=== PATIENT | female | born 2000 | race Caucasian/White ===

== ENCOUNTER 2021-08-08 14:29 | Emergency (ER) | payer MEDICAID ==
--- NOTE | 2021-08-08 14:31 | ERPHSYRPT ---
- History of Present Illness Time Seen by Provider: 08/08/21 14:31 Source: patient Exam Limitations: no limitations Physician History: This is a 20-year-old white female who states that her last menstrual period was July 07, 2021 and she has been having bleeding intermittently since that date. Approximately 2 weeks ago patient took a test and was positive. She then followed up with [facility] emergency department a week after and confirmed that there was a positive test. She also underwent a transvaginal ultrasound at that time and it was negative per her report. We will obtain those records. Patient states she has had blood work ordered by an svp chief marketing officer which showed her quantitative hCG to be low. A repeat 1 was even lower. She has yet to see this svp chief marketing officer and could not get a hold of them this weekend. She was told that she should have repeat studies to evaluate her quantitative hCG status and CBC. Patient states that she has a lower suprapubic to left side mild cramping. Timing/Duration: week(s) (4), intermittent Severity: mild Associated Symptoms: abdominal pain (Mild cramping suprapubic to left side), other (She denies dizziness when standing and ambulating.), No weakness Allergies/Adverse Reactions: No Known Drug Allergies Allergy (Verified 08/08/21 14:37) Home Medications: No Home Meds [No Home Meds] 1 [facility] 11/26/13 [History] Hx Tetanus, Diphtheria Vaccination/Date Given: Yes Hx Influenza Vaccination/Date Given: No Hx Pneumococcal Vaccination/Date Given: No Travel Risk - International Travel Have you traveled outside of the country in past 3 weeks: No - Coronavirus Screening Are you exhibiting any of the following symptoms?: No Close contact with a COVID-19 positive Pt in past 14-21 Days: No - Review of Systems Constitutional: No Symptoms, No Weakness Eyes: No Symptoms Ears, Nose, & Throat: No Symptoms Respiratory: No Symptoms Cardiac: No Symptoms Abdominal/Gastrointestinal: Abdominal Pain (Mild cramping suprapubic midline to left side), No Nausea, No Vomiting, No Diarrhea Genitourinary Symptoms: Vaginal Bleeding, No Dysuria, No Hematuria, No Flank P ain Musculoskeletal: No Symptoms Skin: No Symptoms Neurological: No Symptoms, No Dizziness Psychological: No Symptoms Endocrine: No Symptoms Hematologic/Lymphatic: No Symptoms Immunological/Allergic: No Symptoms All Other Systems: Reviewed and Negative - Past Medical History Pertinent Past Medical History: No Neurological History: No Pertinent History ENT History: No Pertinent History Cardiac History: No Pertinent History Respiratory History: No Pertinent History Endocrine Medical History: No Pertinent History Musculoskeletal History: No Pertinent History GI Medical History: No Pertinent History History: No Pertinent History Psycho-Social History: No Pertinent History Female Reproductive Disorders: No Pertinent History - Past Surgical History Past Surgical History: Yes Neuro Surgical History: No Pertinent History Cardiac: No Pertinent History Respiratory: No Pertinent History Gastrointestinal: No Pertinent History Genitourinary: No Pertinent History Musculoskeletal: No Pertinent History Female Surgical History: No Pertinent History Other Surgical History: ortho - Social History Smoking Status: Never smoker Exposure to second hand smoke: Yes Drug Use: none Patient Lives Alone: No - Nursing Vital Signs Nursing Vital Signs: Initial Vital Signs Temperature 98.0 F 08/08/21 14:39 Pulse Rate 67 08/08/21 14:39 Respiratory Rate 18 08/08/21 14:39 Blood Pressure 137/92 08/08/21 14:39 O2 Sat by Pulse Oximetry 100 08/08/21 14:39 Pain Scale Pain Intensity 0 - Physical Exam General Appearance: no apparent distress, alert, anxiety, thin Eye Exam: PERRL/EOMI, eyes nml inspection Ears, Nose, Throat Exam: normal ENT inspection, moist mucous membranes Neck Exam: normal inspection, non-tender, supple, full range of motion Respiratory Exam: normal breath sounds, lungs clear, airway intact, No chest tenderness, No respiratory distress Cardiovascular Exam: regular rate/rhythm, normal heart sounds, normal peripheral pulses Gastrointestinal/Abdomen Exam: soft, normal bowel sounds, tenderness (Mild left side suprapubic to deep palpation), No distention, No guarding, No rebound Pelvic Exam: normal external exam, No adnexal tenderness, No adnexal mass Rectal Exam: not done Back Exam: normal inspection, normal range of motion, No CVA tenderness, No vertebral tenderness Extremity Exam: normal inspection, normal range of motion, pelvis stable Neurologic Exam: alert, oriented x 3, cooperative, manager unix II-XII nml as tested, normal mood/affect, nml cerebellar function, nml station & gait, sensation nml Skin Exam: normal color, warm, dry Lymphatic Exam: No adenopathy SpO2 Interpretation: normal O2 Delivery: Room Air - Course Nursing assessment & vital signs reviewed: Yes Ordered Tests: Active Orders 24 hr Category Date Time Status Orthostatic Vital Signs STAT Care 08/08/21 14:54 Active CBC W DIFF Stat Lab 08/08/21 15:00 Completed HCG, Quantitative (Inhouse) Stat Lab 08/08/21 15:00 Completed UA W/RFX UR CULTURE Stat Lab 08/08/21 15:43 Ordered Lab/Rad Data: Laboratory Result Diagrams 08/08/21 15:00 Laboratory Results 08/08/21 08/08/21 Range/Units 15:00 15:00 WBC 5.2 (4.0-10.5) K/mm3 RBC 3.80 L (4.1-5.4) M/mm3 Hgb 11.7 L (12.0-16.0) gm/dl Hct 36.8 (35-47) % MCV 96.8 (78-100) fl MCH 30.8 (26-32) pg MCHC 31.8 L (32-36) g/dl RDW 12.5 (11.5-14.0) % Plt Count 293 (150-450) K/mm3 MPV 9.7 (7.5-11.0) fl Gran % 51.3 (36.0-66.0) % Eos # (Auto) 0.12 (0-0.5) Absolute Lymphs (auto) 1.65 (1.0-4.6) Absolute Monos (auto) 0.74 (0.0-1.3) Lymphocytes % 31.6 (24.0-44.0) % Monocytes % 14.2 H (0.0-12.0) % Eosinophils % 2.3 (0.00-5.0) % Basophils % 0.6 (0.0-0.4) % Absolute Granulocytes 2.68 (1.4-6.9) Basophils # 0.03 (0-0.4) Beta HCG, Quant 4.96 mIU/ml - Progress Progress: improved, re-examined Progress Note: 08/08/21 15:53 Medical decision making: This patient has had intermittent vaginal bleeding for approximately 4 weeks. She has been seen in the emergency departments on at least 2 different occasions and has called her svp chief marketing officer once but has never seen that physician. On 07/26/2021 patient underwent the transvaginal ultrasound that shows of unknown location. There was a possible early intrauterine gestational sac though they state it is not definitive. The beta (quantitative) hCG was 489 on that date and now it is 4. Patient does not have a significant amount of pain. She is not orthostatic. Her hemoglobin today is 11.7. On 07/26/2021 patient's hemoglobin was 11.5. Because she is hemodynamically stable and on the last ultrasound there was a possible early intrauterine gestational sac present I think the patient is stable enough to be discharged to home with instruction to follow-up tomorrow morning and obtain a repeat transvaginal ultrasound. She was instructed to have a follow-up in ultrasound in 5 to 7 days from that 07/26/2021 date. However, she did not obtain another ultrasound. Counseled pt/family regarding: lab results, diagnosis, need for follow-up - Departure Departure Disposition: Home Clinical Impression: Vaginal bleeding Condition: Stable Critical Care Time: No Additional Instructions: Return to the radiology department tomorrow, 08/09/2021, at the instructed time. Follow the pretransvaginal ultrasound instructions. Return to the emergency department if vaginal bleeding or abdominal pain worsens.
[2021-08-08 14:46] VITALS: O2SAT 100
[2021-08-08 15:16] LABS: Absolute Neutrophil Ct (ANC) 2.68 (1.4-6.9); BASOPHIL % 0.6 % (0.0-0.4); Basophil (Absolute #) 0.03 (0-0.4); Eosinophil % 2.3 % (0.00-5.0); Eosinophil (Absolute #) 0.12 (0-0.5); Hematocrit 36.8 % (35-47); Hemoglobin 11.7 gm/dl (12.0-16.0); Lymphocyte (Absolute #) 1.65 (1.0-4.6); Lymphocytes % 31.6 % (24.0-44.0); Mean Cell Volume 96.8 fl (78-100); Mean Corpuscular Hemoglobin 30.8 pg (26-32); Mean Corpuscular Hgb Concent. 31.8 g/dl (32-36); Mean Platelet Volume 9.7 fl (7.5-11.0); Monocyte (Absolute #) 0.74 (0.0-1.3); Monocytes % 14.2 % (0.0-12.0); Neutrophil % 51.3 % (36.0-66.0); Platelet Count 293 K/mm3 (150-450); Red Cell Distribution Width 12.5 % (11.5-14.0); White Blood Count 5.2 K/mm3 (4.0-10.5)
[2021-08-08 15:41] LABS: Appearance CLEAR (CLEAR); Bilirubin NEGATIVE (NEGATIVE); Blood NEGATIVE Ery/ul (0-5); Glucose NEGATIVE (NEGATIVE); Ketones NEGATIVE (NEGATIVE); Leukocyte Esterase NEGATIVE (NEGATIVE); Mucus SLIGHT /HPF (NEGATIVE); Nitrite NEGATIVE (NEGATIVE); Protein,Urine Dip 30 (Negative); Specific Gravity 1.018 (1.005-1.025); Urobilinogen NEGATIVE mg/dL (0-1)
[2021-08-08 16:29] VITALS: BP 115/67; PULSE 78
== END 2021-08-08 16:29 | disposition home or self-care (01) ==
LOC: ED 14:29
DX: N93.9 Abnormal uterine and vaginal bleeding, unspecified (principal); R10.9 Unspecified abdominal pain
CPT/HCPCS: 36415; 81001; 84702; 85025; 99283

== ENCOUNTER 2022-06-20 13:21 | Emergency (ER) | payer MEDICAID ==
[2022-06-20] MEDS ORDERED: Sodium Chloride 0.9% 1000 ML 1,000 ML IV STA (14:01)
[2022-06-20] MEDS ORDERED: Sodium Chloride 0.9% 1000 ML 1,000 ML ONE (14:15)
[2022-06-20 14:17] LABS: Absolute Neutrophil Ct (ANC) 2.54 x10^3/uL (1.4-6.9); Basophil (Absolute #) 0.06 x10^3/uL (0-0.4); Eosinophil % 1.7 % (0.00-5.0); Eosinophil (Absolute #) 0.08 x10^3/uL (0-0.5); Hematocrit 34.2 % (35-47); Hemoglobin 11.2 g/dL (12.0-16.0); Lymphocyte (Absolute #) 1.36 x10^3/uL (1.0-4.6); Lymphocytes % 29.6 % (24.0-44.0); Mean Cell Volume 96.1 fL (78-100); Mean Corpuscular Hemoglobin 31.5 pg (26-32); Mean Corpuscular Hgb Concent. 32.7 g/dL (32-36); Mean Platelet Volume 9.2 fL (7.5-11.0); Monocyte (Absolute #) 0.54 x10^3/uL (0.0-1.3); Monocytes % 11.8 % (0.0-12.0); Neutrophil % 55.4 % (36.0-66.0); Platelet Count 207 x10^3/uL (150-450); Red Blood Count 3.56 x10^6/uL (4.1-5.4); Red Cell Distribution Width 12.1 % (11.5-14.0); White Blood Count 4.6 x10^3/uL (4.0-10.5)
--- NOTE | 2022-06-20 15:21 | ERPHSYRPT ---
- History of Present Illness Time Seen by Provider: 06/20/22 13:41 Source: patient Exam Limitations: no limitations Patient Subjective Stated Complaint: pt here for vaginal bleeding that started today at work with sine blood clots and lower abd pain Triage Nursing Assessment: pt alert, crying off and on, resp easy, skin w/d/p, abd soft, no edema, Physician History: 21 years old 2 para 0 at almost 6 weeks gestation per LMP presented in the ER after she noticed vaginal bleeding/clot earlier today and every time she wiped she noticed some dark blood afterwards. She is also complaining of pelvic pressure and cramping mild to moderate. No difficulty urination. Does have history of miscarriage around 6 weeks last year. Timing/Duration: hour(s) (2), gradual onset, worse Activites at Onset: physical activity Quality: cramping Onset Location: pelvic pain Pain Radiation: none Severity of Pain-Max: moderate Severity of Pain-Current: mild Prior abdominal problems: none Sexual intercourse history: non-contributory Modifying Factors: Improves With: nothing Associated Symptoms: denies symptoms Allergies/Adverse Reactions: No Known Drug Allergies Allergy (Verified 06/20/22 13:30) Home Medications: No Home Meds [No Home Meds] 1 [facility] 11/26/13 [History] Hx Tetanus, Diphtheria Vaccination/Date Given: No Hx Influenza Vaccination/Date Given: No Hx Pneumococcal Vaccination/Date Given: No Travel Risk - International Travel Have you traveled outside of the country in past 3 weeks: No - Coronavirus Screening Are you exhibiting any of the following symptoms?: No Close contact with a COVID-19 positive Pt in past 14-21 Days: No - Vaccine Status Have you recieved a Covid-19 vaccination: Yes Targeting Acquisition Officer: Moderna - Vaccination Dates Date of 2cond Vaccination (if applicable): 2020 - Review of Systems Constitutional: No Symptoms Eyes: No Symptoms Ears, Nose, & Throat: No Symptoms Respiratory: No Symptoms Cardiac: No Symptoms Abdominal/Gastrointestinal: Abdominal Pain Genitourinary Symptoms: No Symptoms Musculoskeletal: No Symptoms Skin: No Symptoms Neurological: No Symptoms Psychological: No Symptoms Endocrine: No Symptoms Hematologic/Lymphatic: No Symptoms Immunological/Allergic: No Symptoms - Past Medical History Pertinent Past Medical History: No Neurological History: No Pertinent History ENT History: No Pertinent History Cardiac History: No Pertinent History Respiratory History: No Pertinent History Endocrine Medical History: No Pertinent History Musculoskeletal History: No Pertinent History GI Medical History: No Pertinent History History: No Pertinent History Psycho-Social History: No Pertinent History Female Reproductive Disorders: No Pertinent History - Past Surgical History Past Surgical History: Yes Neuro Surgical History: No Pertinent History Cardiac: No Pertinent History Respiratory: No Pertinent History Gastrointestinal: No Pertinent History Genitourinary: No Pertinent History Musculoskeletal: No Pertinent History Female Surgical History: No Pertinent History Other Surgical History: ortho - Social History Smoking Status: Never smoker Exposure to second hand smoke: No Drug Use: none Patient Lives Alone: No - Female History Hx Last Menstrual Period: may 06 Hx Now: Yes - Nursing Vital Signs Nursing Vital Signs: Initial Vital Signs Temperature 97.0 F 06/20/22 13:40 Pulse Rate 88 06/20/22 13:40 Respiratory Rate 18 06/20/22 13:40 Blood Pressure 122/81 06/20/22 13:40 O2 Sat by Pulse Oximetry 98 06/20/22 13:40 Pain Scale Pain Intensity 2 - Physical Exam General Appearance: no apparent distress, alert Eye Exam: PERRL/EOMI Ears, Nose, Throat Exam: normal ENT inspection Neck Exam: normal inspection, full range of motion Respiratory Exam: normal breath sounds, lungs clear Cardiovascular Exam: regular rate/rhythm, normal heart sounds Gastrointestinal/Abdomen Exam: soft, normal bowel sounds, No tenderness Back Exam: normal inspection, normal range of motion Extremity Exam: normal inspection, normal range of motion Neurologic Exam: alert, oriented x 3, cooperative Skin Exam: normal color SpO2 Interpretation: normal SpO2: 98 O2 Delivery: Room Air Ordered Tests: Active Orders 24 hr Category Date Time Status IV Insertion STAT Care 06/20/22 14:01 Active OB <14 WKS 1ST GESTATION [US] Stat Exams 06/20/22 15:44 Taken CBC W DIFF Stat Lab 06/20/22 14:13 Completed CMP Stat Lab 06/20/22 14:13 Completed CULTURE,URINE Stat Lab 06/20/22 14:07 Received HCG, Quantitative (Inhouse) Stat Lab 06/20/22 14:13 Completed UA W/RFX CULTURE Stat Lab 06/20/22 14:07 Completed Medication Summary Discontinued Medications Generic Name Dose Route Start Last Admin Trade Name Freq PRN Reason Stop Dose Admin Sodium Chloride 1,000 mls @ 999 mls/hr 06/20/22 14:01 06/20/22 15:17 Sodium Chloride 0.9% 1000 Ml IV 06/20/22 15:01 Infused .Q1H1M STA Infusion Sodium Chloride Confirm 06/20/22 14:15 Sodium Chloride 0.9% 1000 Ml Administered 06/20/22 14:16 Dose 1,000 mls @ ud .ROUTE .STK-MED ONE Ceftriaxone Sodium/Dextrose 1 g in 50 mls @ 100 mls/hr 06/20/22 16:16 06/20/22 16:49 Rocephin 1 Gm-D5w 50 Ml Bag IV 06/20/22 16:45 Infused STAT STA Infusion Ceftriaxone Sodium/Dextrose Confirm 06/20/22 16:17 Rocephin 1 Gm-D5w 50 Ml Bag Administered 06/20/22 16:18 Dose 1 g in 50 mls @ ud IV .STK-MED ONE Lab/Rad Data: Laboratory Result Diagrams 06/20/22 14:13 06/20/22 14:13 Laboratory Results 06/20/22 06/20/22 06/20/22 Range/Units 15:51 14:13 14:13 WBC 4.6 (4.0-10.5) x10^3/uL RBC 3.56 L (4.1-5.4) x10^6/uL Hgb 11.2 L (12.0-16.0) g/dL Hct 34.2 L (35-47) % MCV 96.1 (78-100) fL MCH 31.5 (26-32) pg MCHC 32.7 (32-36) g/dL RDW 12.1 (11.5-14.0) % Plt Count 207 (150-450) x10^3/uL MPV 9.2 (7.5-11.0) fL Gran % 55.4 (36.0-66.0) % Immature Gran % (Auto) 0.2 (0.00-0.4) % Nucleat RBC Rel Count 0.0 (0.00-0.1) % Eos # (Auto) 0.08 (0-0.5) x10^3/uL Immature Gran # (Auto) 0.01 (0.00-0.03) x10^3u/L Absolute Lymphs (auto) 1.36 (1.0-4.6) x10^3/uL Absolute Monos (auto) 0.54 (0.0-1.3) x10^3/uL Absolute Nucleated RBC 0.00 (0.00-0.01) x10^3u/L Lymphocytes % 29.6 (24.0-44.0) % Monocytes % 11.8 (0.0-12.0) % Eosinophils % 1.7 (0.00-5.0) % Basophils % 1.3 (0.0-0.4) % Absolute Granulocytes 2.54 (1.4-6.9) x10^3/uL Basophils # 0.06 (0-0.4) x10^3/uL Sodium 137 (137-145) mmol/L Potassium 3.9 (3.5-5.1) mmol/L Chloride 105 (98-107) mmol/L Carbon Dioxide 25 (22-30) mmol/L Anion Gap 11.6 (5-15) MEQ/L BUN 11 (7-17) mg/dL Creatinine 0.61 (0.52-1.04) mg/dL Estimated GFR > 60.0 ML/MIN Glucose 90 (74-106) mg/dL Calcium 9.1 (8.4-10.2) mg/dL Total Bilirubin 0.60 (0.2-1.3) mg/dL AST 27 (14-36) U/L ALT 10 (0-35) U/L Alkaline Phosphatase 47 (38-126) U/L Serum Total Protein 7.0 (6.3-8.2) g/dL Albumin 4.4 (3.5-5.0) g/dL Beta HCG, Quant 664.80 mIU/ml Urinalys Dipstick Clnc Urine Color (YELLOW) Urine Appearance (CLEAR) Urine pH (5-6) Ur Specific Kaplan (1.005-1.025) POC Urine Protein Conf (Negative) Urine Ketones (NEGATIVE) Urine Nitrite (NEGATIVE) Urine Bilirubin (NEGATIVE) Urine Urobilinogen (0-1) mg/dL Urine Leukocytes (NEGATIVE) Urine WBC (Auto) (0-5) /HPF Urine RBC (Auto) (0-2) /HPF U Hyaline Cast (Auto) (0-2) /LPF U Epithel Cells (Auto) (FEW) /HPF Urine Bacteria (Auto) (NEGATIVE) /HPF Urine RBC (0-5) Avni/ul Urine Mucus (Auto) (NEGATIVE) /HPF Ur Culture Indicated? Urine Glucose (NEGATIVE) mg/dL ABO Group O Rh Factor POSITIVE Antibody Screen NEGATIVE (NEGATIVE) 06/20/22 Range/Units 14:07 WBC (4.0-10.5) x10^3/uL RBC (4.1-5.4) x10^6/uL Hgb (12.0-16.0) g/dL Hct (35-47) % MCV (78-100) fL MCH (26-32) pg MCHC (32-36) g/dL RDW (11.5-14.0) % Plt Count (150-450) x10^3/uL MPV (7.5-11.0) fL Gran % (36.0-66.0) % Immature Gran % (Auto) (0.00-0.4) % Nucleat RBC Rel Count (0.00-0.1) % Eos # (Auto) (0-0.5) x10^3/uL Immature Gran # (Auto) (0.00-0.03) x10^3u/L Absolute Lymphs (auto) (1.0-4.6) x10^3/uL Absolute Monos (auto) (0.0-1.3) x10^3/uL Absolute Nucleated RBC (0.00-0.01) x10^3u/L Lymphocytes % (24.0-44.0) % Monocytes % (0.0-12.0) % Eosinophils % (0.00-5.0) % Basophils % (0.0-0.4) % Absolute Granulocytes (1.4-6.9) x10^3/uL Basophils # (0-0.4) x10^3/uL Sodium (137-145) mmol/L Potassium (3.5-5.1) mmol/L Chloride (98-107) mmol/L Carbon Dioxide (22-30) mmol/L Anion Gap (5-15) MEQ/L BUN (7-17) mg/dL Creatinine (0.52-1.04) mg/dL Estimated GFR ML/MIN Glucose (74-106) mg/dL Calcium (8.4-10.2) mg/dL Total Bilirubin (0.2-1.3) mg/dL AST (14-36) U/L ALT (0-35) U/L Alkaline Phosphatase (38-126) U/L Serum Total Protein (6.3-8.2) g/dL Albumin (3.5-5.0) g/dL Beta HCG, Quant mIU/ml Urinalys Dipstick Clnc MAIN LAB Urine Color YELLOW (YELLOW) Urine Appearance CLEAR (CLEAR) Urine pH 5.5 (5-6) Ur Specific Kaplan >=1.030 (1.005-1.025) POC Urine Protein Conf 30 (Negative) Urine Ketones NEGATIVE (NEGATIVE) Urine Nitrite NEGATIVE (NEGATIVE) Urine Bilirubin NEGATIVE (NEGATIVE) Urine Urobilinogen 0.2 (0-1) mg/dL Urine Leukocytes NEGATIVE (NEGATIVE) Urine WBC (Auto) 16-25 (0-5) /HPF Urine RBC (Auto) 16-25 (0-2) /HPF U Hyaline Cast (Auto) 3-5 (0-2) /LPF U Epithel Cells (Auto) RARE (FEW) /HPF Urine Bacteria (Auto) FEW (NEGATIVE) /HPF Urine RBC LARGE (0-5) Avni/ul Urine Mucus (Auto) SLIGHT (NEGATIVE) /HPF Ur Culture Indicated? YES Urine Glucose NEGATIVE (NEGATIVE) mg/dL ABO Group Rh Factor Antibody Screen (NEGATIVE) - Progress Progress: improved Air Movement: good Progress Note: 06/20/22 17:50 21 years old did for early related bleeding. Patient has beta-hCG in 600s. Ultrasound obtained which is unable to see pole/heart tones which could be real early in versus threatened . Recommended serial monitoring of beta-hCG and outpatient EMBEDDED SYSTEMS SOFTWARE DEVELOPER follow-up. Does have UTI, given dose of Rocephin in here and will continue with Keflex to go home. Discussed signs symptoms of worsening needing return to ER which she seems understanding. Blood Culture(s) Obtained: No Antibiotics given: No Counseled pt/family regarding: lab results, diagnosis, need for follow-up, rad results - Departure Departure Disposition: Home Clinical Impression: Vaginal bleeding affecting early , UTI in Condition: Stable Critical Care Time: No Referrals: RANULFO RODRIGUEZ [Primary Care Provider] - Follow Up with PCP/3 days ELIOT BECKHAM DO [ACTIVE STAFF] - Follow up/PCP as directed (Call tomorrow for appointment for reevaluation) Instructions: Threatened Miscarriage (DC), Bleeding in Early (DC) Additional Instructions: Keep yourself well-hydrated. Take Tylenol as needed for cramping. Follow-up with your primary care/EMBEDDED SYSTEMS SOFTWARE DEVELOPER for reevaluation and recheck of beta-hCG to see if it is increasing or not. Return to ER for worsening cramping, bleeding etc. Prescriptions: Cephalexin Mh 500 mg [Keflex 500 mg] 500 mg PO TID #21 cap
[2022-06-20 15:24] LABS: ALBUMIN 4.4 g/dL (3.5-5.0); ALKALINE PHOSPHATASE 47 U/L (38-126); ANION GAP 11.6 MEQ/L (5-15); BLOOD UREA NITROGEN 11 mg/dL (7-17); CHLORIDE 105 mmol/L (98-107); Calcium 9.1 mg/dL (8.4-10.2); Carbon Dioxide 25 mmol/L (22-30); Creatinine 1 0.61 mg/dL (0.52-1.04); EST GLOMERULAR FILTRATION RATE > 60.0 ML/MIN; Glucose 90 mg/dL (74-106); Potassium 3.9 mmol/L (3.5-5.1); SGOT/AST 27 U/L (14-36); SGPT/ALT 10 U/L (0-35); SODIUM 137 mmol/L (137-145)
[2022-06-20 15:31] LABS: Bacteria FEW /HPF (NEGATIVE); Epithelial Cells RARE /HPF (FEW); Mucus SLIGHT /HPF (NEGATIVE)
[2022-06-20 15:36] LABS: Appearance CLEAR (CLEAR); Bilirubin NEGATIVE (NEGATIVE); Glucose NEGATIVE (NEGATIVE); Ketones NEGATIVE (NEGATIVE)
[2022-06-20 15:37] LABS: Dipstick done @ ? MAIN LAB; Nitrite NEGATIVE (NEGATIVE); Ph 5.5 (5-6); Protein,Urine Dip 30 (Negative); RBC LARGE Ery/ul (0-5); Specific Gravity >=1.030 (1.005-1.025); Urine Cultured Indicated? YES; Urobilinogen 0.2 mg/dL (0-1)
[2022-06-20] MEDS ORDERED: ROCEPHIN 1 Gm-D5w 50 ml Bag** 1 G/50 ML IVPB IV STA (16:16)
[2022-06-20] MEDS ORDERED: ROCEPHIN 1 Gm-D5w 50 ml Bag** 1 G/50 ML IVPB IV ONE (16:17)
[2022-06-20 16:55] LABS: ABO TYPING O; Antibody Screen NEGATIVE (NEGATIVE); RH TYPING POSITIVE
[2022-06-20 18:11] VITALS: BP 125/93; PULSE 88; O2SAT 97
--- NOTE | 2022-06-20 18:26 | XRAY ---
Indication: Bleeding and cramping. Two-dimensional transvaginal early OB ultrasound is negative for intrauterine or ectopic . Endometrial stripe is thickened measuring 1.7 cm. No endometrial cavity mass or fluid collection. Left and right ovaries are sonographically unremarkable. No suspicious adnexal mass or free fluid. Comment: Negative for intrauterine/ectopic . Thickened endometrial stripe. Correlate with serial beta hCG and follow-up sonogram regarding viability. Comment: Preliminary report was given.
== END 2022-06-20 18:10 | disposition home or self-care (01) ==
LOC: ED 13:21
DX: O20.9 Hemorrhage in early pregnancy, unspecified (principal); O23.41 Unspecified infection of urinary tract in pregnancy, first trimester; N39.0 Urinary tract infection, site not specified; Z3A.01 Less than 8 weeks gestation of pregnancy
CPT/HCPCS: 36000; 36415; 76801; 80053; 81015; 84702; 85025; 86850; 86900; 86901; 87086; 96365; 99284; J0696

== ENCOUNTER 2022-06-28 06:56 | Day surgery (SDC) | payer MEDICAID ==
[2022-06-28] MEDS ORDERED: Versed 2 MG/2 ML Injection IV PRN (07:43)
[2022-06-28] MEDS ORDERED: Lactated Ringers 1,000 ML IV ONE (07:45)
[2022-06-28] MEDS ORDERED: Versed 2 MG/2 ML Injection ONE ×2 (07:46→08:52)
[2022-06-28] MEDS ORDERED: CEFAZOLIN 2 GM-D5W BAG** 2 GM/50 ML ML IV ONE (07:46)
[2022-06-28] MEDS ORDERED: CEFAZOLIN 2 GM-D5W BAG** 2 GM/50 ML ML IV SCH (08:00)
[2022-06-28] MEDS ORDERED: Lactated Ringers 1,000 ML IV SCH (08:00)
[2022-06-28 08:11] LABS: Hematocrit 34.4 % (35-47); Mean Cell Volume 97.2 fL (78-100); Mean Corpuscular Hemoglobin 31.1 pg (26-32); Mean Platelet Volume 9.5 fL (7.5-11.0); Platelet Count 212 x10^3/uL (150-450); Red Blood Count 3.54 x10^6/uL (4.1-5.4); Red Cell Distribution Width 12.3 % (11.5-14.0)
[2022-06-28 08:43] LABS: ABO TYPING O; Antibody Screen NEGATIVE (NEGATIVE); RH TYPING POSITIVE
[2022-06-28] MEDS ORDERED: SUBLIMAZE 100 MCG/2 ML ONE (08:52)
[2022-06-28 10:40] VITALS: O2SAT 99
[2022-06-28 10:42] VITALS: BP 124/67; PULSE 69
--- NOTE | 2022-06-29 08:08 | OP ---
SURGERY DATE/TIME: 06/28/2022 0855 PREOPERATIVE DIAGNOSIS: Incomplete . POSTOPERATIVE DIAGNOSIS: Incomplete . PROCEDURE: Suction D&C. SURGEON: Harley Alamo D.O. ENGAGEMENT QUALITY CONSULTANT: Sara Banks surgical training specialist. ANESTHESIA: General. ESTIMATED BLOOD LOSS: Minimal. COMPLICATIONS: None. INDICATIONS: The risks, benefits, indications and alternatives of the procedure were reviewed with the patient prior to procedure. The patient understood the risk of infection, bleeding, bowel injury, bladder injury, ureteral injury, uterine perforation, pelvic infection associated with this surgery and she desires to have this surgery as a possible means to alleviate her current medical condition. DESCRIPTION OF PROCEDURE AND FINDINGS: At this point the patient is taken to the operating room, given general sedation, placed in dorsal lithotomy position, prepped and draped in the usual sterile fashion. A weighted speculum is then placed in the patient's vagina and the anterior lip of the cervix is grasped with a single tooth tenaculum. Endocervical dilators were advanced through the endocervical canal as a means to dilate the cervix. It was mildly open. A #7 suction Vacurette was then placed into the fundus where the machine was turned on for suctioning and retrieval of products of conception was obtained. From this point after suctioning, a curette was then placed into the fundus of the uterus and curettage was performed in all quadrants of the uterus retrieving minimal amount of tissue. From this point hemostasis was obtained. All instruments were removed from the patient's vaginal region. The patient was taken out of the dorsal lithotomy position and was taken out of anesthesia and was then taken to the recovery room in stable condition. All instruments and laps were accounted for x2.
== END 2022-06-28 10:48 | disposition home or self-care (01) ==
LOC: SDC 06:56
PROVIDERS: ATTEND Obstetrics & Gynecology
DX: O03.4 Incomplete spontaneous abortion without complication (principal)
CPT/HCPCS: 36415; 84702; 85027; 86850; 86900; 86901; J0690; J2250; J3010